=== PATIENT | female | born 1970 | race Two or more races ===

== ENCOUNTER 2025-07-15 21:18 | Emergency (ER) | payer OTHER ==
[~2025-07-15] VITALS: Ht 170.2 cm; Wt 95.3 kg
[~2025-07-15 21:18] MED LIST: BENADRYL50 MG PO; MEDROL4 MG PO
[2025-07-15] MEDS ORDERED: KETOROLAC TROMETHAMINE 60 MG VIAL IM STA (22:32)
== END 2025-07-15 22:45 | disposition home or self-care (01) ==
LOC: ER 21:18
DX: G44.209 Tension-type headache, unspecified, not intractable (principal); Z91.013 Allergy to seafood; Z91.018 Allergy to other foods